=== PATIENT | male | born 1960 | race Caucasian/White ===

== ENCOUNTER 2022-11-12 06:05 | Day surgery (SDC) | payer BC ==
[2022-11-12] MEDS ORDERED: Acetaminophen 500 MG Tab PO ONE (06:30)
[2022-11-12 06:46] LABS: ESTIMATED GFR 97 mL/min (>60)
[2022-11-12] MEDS ORDERED: Lidocaine 1% with EPINEPHrine 1:100,000 50 ML MDV ONE (06:54)
[2022-11-12] MEDS ORDERED: Bupivacaine 0.5% 30 ML SDV ONE (06:54)
[2022-11-12] MEDS ORDERED: Dextrose 5%-Lactated Ringers 1,000 ML IV SCH (07:00)
[2022-11-12] MEDS ORDERED: fentaNYL 250 MCG/5 ML SDV ONE (07:05)
[2022-11-12] MEDS ORDERED: Propofol 200 MG/20 ML SDV ONE (07:06)
[2022-11-12] MEDS ORDERED: Dexamethasone 4 MG/ML SDV ONE (07:06)
[2022-11-12] MEDS ORDERED: Neostigmine Methylsulfate 1 MG/ML 5 ML Syringe ONE (07:06)
[2022-11-12] MEDS ORDERED: Glycopyrrolate 0.2 MG/ML 5 ML MDV ONE (07:06)
[2022-11-12] MEDS ORDERED: Rocuronium 50 MG/5 ML Vial ONE (07:06)
[2022-11-12] MEDS ORDERED: Ondansetron 4 MG/2 ML SDV ONE (07:06)
[2022-11-12] MEDS ORDERED: cefOXitin 2 GM in Sodium Chloride 0.9% 50 ML IV ONE (07:30)
[2022-11-12] MEDS ORDERED: Ketorolac 30 MG/ML SDV ONE (07:53)
[2022-11-12] MEDS ORDERED: Ketamine 500 MG/5 ML MDV IV SCH (08:00)
[2022-11-12] MEDS ORDERED: Ketamine 22 MG in Sodium Chloride 0.9% 19.78 ML IV SCH (08:00)
[2022-11-12] MEDS ORDERED: fentaNYL 100 MCG/2 ML SDV ONE (08:09)
[2022-11-12] MEDS ORDERED: HYDROmorphone 2 MG Tab PO PRN (09:09)
[2022-11-12] MEDS ORDERED: Ibuprofen 600 MG Tab PO PRN (09:09)
== END 2022-11-12 10:15 | disposition home or self-care (01) ==
LOC: JP.SDS 06:05
PROVIDERS: ATTEND Surgery
DX: K80.12 Calculus of gallbladder with acute and chronic cholecystitis without obstruction (principal); K43.0 Incisional hernia with obstruction, without gangrene; F17.210 Nicotine dependence, cigarettes, uncomplicated; G43.909 Migraine, unspecified, not intractable, without status migrainosus; K58.9 Irritable bowel syndrome, unspecified; E78.5 Hyperlipidemia, unspecified; Z79.899 Other long term (current) drug therapy
CPT/HCPCS: 36415; 47562; 62323; 80053; 83735; 84100; 85027; 88304; A9270; J0171; J0694; J1100; J1885; J2405; J2704; J2710; J2795; J3010; J3490; J7121

== ENCOUNTER 2025-02-01 06:28 | Day surgery (SDC) | payer BC ==
[2025-02-01] MEDS: Lactated Ringers 1,000 ML IV SCH (07:06)
[2025-02-01] MEDS ORDERED: Midazolam 1 MG/ML 2 ML SDV ONE (07:17)
[2025-02-01] MEDS ORDERED: Propofol 200 MG/20 ML SDV ONE ×2 (07:17→07:39)
[2025-02-01] MEDS ORDERED: fentaNYL 50 MCG/ML SDV ONE (07:17)
== END 2025-02-01 09:05 | disposition home or self-care (01) ==
LOC: JP.SDS 06:28
PROVIDERS: ATTEND Surgery
DX: Z12.11 Encounter for screening for malignant neoplasm of colon (principal); D12.4 Benign neoplasm of descending colon
CPT/HCPCS: 00811; 45380; J2250; J2704; J3010; J7120